=== PATIENT | male | born 1955 | race Caucasian/White ===

== ENCOUNTER → 2019-04-15 14:39 | Outpatient (CLI) | payer BC, SELFPAY ==
--- NOTE | ~2019-04-15 | US_ITS ---
EXAMINATION: US abdomen complete EXAM DATE: 04/15/2019 15:09 INDICATION: Right upper quadrant pain. Epigastric pain. Mid back pain. TECHNIQUE: Multiple grayscale and Doppler images of the complete abdomen were obtained (by a technolo gist who performed the scan) and subsequently reviewed. There is no prior study for comparison. FINDINGS: The abdominal aorta is normal in caliber. Visualized portion IVC is patent. The pancreatic head a nd body are normal in appearance. The pancreatic tail is not visualized. The liver has normal echogenicity and contour. There are no focal liver lesions identified. There is no evidence of intrahepatic biliary duct dilation. Portal venous flow was seen in the hepatopedal , normal direction and has normal Doppler waveform. Common bile duct measures 4 mm, which is normal. The gallbladder wall is normal in thickness, with ex pected amount of distention. No sonographic evidence of pericholecystic fluid. There is no cholelit hiases. Technologist performing exam reports patient did not demonstrate sonographic Miller's sign. Please note that this sign is less reliable in patients who have received pain medication. Right kidney: There is normal contour and echogenicity. It measures 11.7 x 6.2 x 7.1 centimeters. There are no focal renal lesions identified. There is no hydronephrosis. Left kidney: There is normal contour and echogenicity. It measures 11.6 x 6.4 x 6.2 centimeters. T here are no focal renal lesions identified. There is no hydronephrosis. The spleen measures 9.7 centimeters and is morphologically normal. IMPRESSION: 1. Unremarkable complete abdominal ultrasound exam. Reviewed, dictated and finalized at location A. NE WELDER
== END ==
PROVIDERS: Visit Provider Family Medicine
DX: R10.11 Right upper quadrant pain (principal)
CPT/HCPCS: 76700

== ENCOUNTER 2019-04-23 08:07 | Outpatient (CLI) | payer BC, SELFPAY ==
--- NOTE | ~2019-04-23 | NM_ITS ---
EXAMINATION: NM hepatobiliary w pharm DATE: 04/23/2019 13:27 INDICATION: Right upper quadrant abdominal pain. COMPARISON: Ultrasound 04/15/2019 TECHNIQUE: 4.7 mCi Tc-99m mebrofenin (Choletec) was administered intravenously. Scintigraphic images of the abdomen were obtained for one hour. Then, 2.1 mcg sincalide (Kinevac) IV was administered, an d imaging was continued for 30 minutes. FINDINGS: There is normal clearance of radiotracer from the blood pool. There is homogeneous tracer u ptake by the liver. Activity progresses to the bowel and gallbladder. Gallbladder ejection fraction (GBEF) was 11%. Note that most patients with gallbladder dysfunction have GBEF < 35%, which overlaps with the broad normal range of 10-90%. IMPRESSION: 1. Gallbladder ejection fraction in the lower range of normal. Note that this value overlaps with th e range of values that may be seen with gallbladder dysfunction and/or chronic cholecystitis if there is appropriate clinical correlation. Reviewed, dictated and finalized at location A. DEALER IMPRESSION: 1. Gallbladder ejection fraction in the lower range of normal. Note that this value overlaps with the range of values that may be seen with gallbladder dysfu nction and/or chronic cholecystitis if there is appropriate clinical correlatio wilmer
== END 2019-04-23 08:08 | disposition home or self-care (01) ==
PROVIDERS: PCP Family Medicine; Visit Provider Family Medicine
DX: R10.11 Right upper quadrant pain (principal)
CPT/HCPCS: 78227; A9537; J2805

== ENCOUNTER 2019-05-14 09:33 | Outpatient (CLI) | payer BC, SELFPAY ==
--- NOTE | 2019-05-14 09:35 | ECG_ITS ---
Measurements Intervals [place] Rate: 60 P: 40 DC: 185 QRS: -6 QRSD: 99 T: 21 QT: 408 QTc: 408 Interpretive Statements SINUS RHYTHM WITH SINUS ARRHYTHMIA INCOMPLETE RIGHT BUNDLE BRANCH BLOCK BASELINE ARTIFACT- I, II, III, AVR, AVL, AVF BORDERLINE ECG Electronically Signed On 05-14-2019 10:17:37 CDT by Krystian Gilbert D.O.
[2019-05-14 10:15] LABS: Alanine Aminotransferase 13 U/L (4-50); Albumin Level 4.3 g/dL (3.5-5.1); Alkaline Phosphatase 43 U/L (38-126); Amylase 49 U/L (30-110); Aspartate Amino Transferase 24 U/L (17-59); Bilirubin,Total 0.3 mg/dL (0.2-1.3); Lipase 61 U/L (23-300)
== END 2019-05-14 09:34 | disposition home or self-care (01) ==
PROVIDERS: PCP Family Medicine; Visit Provider Surgery
DX: K82.8 Other specified diseases of gallbladder (principal); I10 Essential (primary) hypertension; I45.10 Unspecified right bundle-branch block
CPT/HCPCS: 36415; 80076; 82150; 83690; 86850; 86900; 86901; 93005

== ENCOUNTER 2019-07-13 00:08 | Outpatient (CLI) | payer BC, SELFPAY ==
[2019-07-13 18:40] LABS: SARS-CoV-2 RNA PCR Negative
== END 2019-07-13 00:09 | disposition home or self-care (01) ==
LOC: ANHCOVIDDT 00:08
PROVIDERS: PCP Family Medicine; Visit Provider Surgery
DX: Z01.812 Encounter for preprocedural laboratory examination (principal); Z20.828 Contact with and (suspected) exposure to other viral communicable diseases
CPT/HCPCS: 87635; C9803; U0003

== ENCOUNTER 2019-07-16 01:20 | Day surgery (SDC) | payer BC, SELFPAY ==
[2019-05-07 10:45] VITALS: BMI 31.1
[2019-07-12 09:05] VITALS: BMI 31.1
[2019-07-16 10:30] VITALS: BP 122/71; PULSE 64; RESP 17; TEMP 36.5; O2SAT 99
--- NOTE | 2019-07-16 10:49 | P.PNAN_ITS ---
Anes - Initial Pre Proc Eval Procedure: Operation Date: 07/16/19 12:00 Proposed Procedures p Laparoscopic Cholecystectomy, Possible Open - Sebas Arboleda DO Date/Time: 07/16/19 10:49 Surgeon: Sebas Arboleda DO Pre Op Diagnosis: Biliary Dyskinesia Patient Data Age: 63 Gender: M Height: 6 ft Weight: 104.33 kg Allergies Allergy/AdvReac Type Severity Reaction Status Date / Time cephalexin Allergy Unknown Rash Verified 07/12/19 09:19 house dust Allergy Unknown CONGESTION/ Verified 07/12/19 09:19 COUGH pollen extracts Allergy Unknown CONGESTION/ Verified 07/12/19 09:19 COUGH Home Medications Medication Instructions Recorded Confirmed Type Vitamin C 1 tablet PO DAILY 05/07/19 07/12/19 History Vitamin D3 1 tablet PO DAILY 05/07/19 07/12/19 History cinnamon bark [Cinnamon] 500 mg PO BIDWM 05/07/19 07/12/19 History milk thistle 1 tablet PO BIDWM 05/07/19 07/12/19 History multivitamin 1 tablet PO DAILY 05/07/19 07/12/19 History omega 3-wii-tuu-fish oil [Fish Oil] 1 cap PO BID 05/07/19 07/12/19 History vitamin B complex 1 tablet PO DAILY 05/07/19 07/12/19 History losartan 25 mg tablet 25 mg PO DAILY #90 tablet 06/07/19 07/12/19 Rx Patient hx anesthesia problems: none Family hx anesthesia problems: none PMFSH Past Medical History Medical History Essential (primary) hypertension Type 2 diabetes mellitus without complications Surgical History Surgical History History of right knee surgery 1985 & 1995 Family History Family History Mother Hypertension Family history of diabetes mellitus in first degree relative Family history of coronary artery disease Diabetes mellitus Father Family history of lung cancer COPD (chronic obstructive pulmonary disease) Lung cancer Other Carcinoma of colon Social History Social History Smoking status: Never smoker Alcohol intake: current Anes - Eval Final PreProcedure Day of Procedure 07/16/19 10:49 Patient weight: obese Heart: regular rate and rhythm Lungs: clear to auscultation Airway: Mallampati scale class II Neurological: alert and oriented Last oral intake: >/= 8 hours Emergent: no Anesthetic plan: proceed Anesthesia type and monitoring: general ETT and standard monitoring Informed Consent: The patient's anesthetic plan and its attendant risks and maritza efits were discussed with the patient/family/POA. Questions were solicited and answers provided to the satisfaction of the patient/family/POA.
[2019-07-16 10:51] LABS: Glucose Point of Care 135 (65-105)
--- NOTE | 2019-07-16 10:55 | PM.IMHP ---
H&P: HPI History of Present Illness Chief complaint: Biliary Dyskinesia Narrative: Noel Wan is a 63 year old male who presents with hx of intermittent upper abdominal pain. Workup showed poor gallbladder function. He now presents for elective lap pérez. Review of Systems Review of Systems: All systems reviewed & are unremarkable except as noted in HPI and below PMFSH Past Medical History Medical History Essential (primary) hypertension Type 2 diabetes mellitus without complications Surgical History Surgical History History of right knee surgery 1985 & 1995 Family History Family History Mother Hypertension Family history of diabetes mellitus in first degree relative Family history of coronary artery disease Diabetes mellitus Father Family history of lung cancer COPD (chronic obstructive pulmonary disease) Lung cancer Other Carcinoma of colon Social History Social History Smoking status: Never smoker Alcohol intake: current Meds Home Medications and Allergies Home Medications Medication Instructions Recorded Confirmed Type Vitamin C 1 tablet PO DAILY 05/07/19 07/12/19 History Vitamin D3 1 tablet PO DAILY 05/07/19 07/12/19 History cinnamon bark [Cinnamon] 500 mg PO BIDWM 05/07/19 07/12/19 History milk thistle 1 tablet PO BIDWM 05/07/19 07/12/19 History multivitamin 1 tablet PO DAILY 05/07/19 07/12/19 History omega 6-ygh-phc-fish oil [Fish Oil] 1 cap PO BID 05/07/19 07/12/19 History vitamin B complex 1 tablet PO DAILY 05/07/19 07/12/19 History losartan 25 mg tablet 25 mg PO DAILY #90 tablet 06/07/19 07/12/19 Rx Allergies Allergy/AdvReac Type Severity Reaction Status Date / Time cephalexin Allergy Unknown Rash Verified 07/12/19 09:19 house dust Allergy Unknown CONGESTION/ Verified 07/12/19 09:19 COUGH pollen extracts Allergy Unknown CONGESTION/ Verified 07/12/19 09:19 COUGH Exam GI: Inspection: normal to inspection GI Palp: No abdominal tenderness Percussion: Yes normal to percussion Auscultation: normal bowel sounds Assessment and Plan Assessment and plan (1) Biliary dyskinesia: Code(s): K82.8 - Other specified diseases of gallbladder Status: Acute Assessment and Plan: I have recommended laparscopic cholecystectomy, possible open. I have discussed the procedure, risks, benefits, and alternatives with the patient. All questions answered. No changes since last seen in office. (2) History of DVT (deep vein thrombosis): Code(s): Z86.718 - Personal history of other venous thrombosis and embolism Status: Acute
[2019-07-16] MEDS: LACTATED RINGERS 1,000 ML 30 ML IV CONT (11:15)
[2019-07-16] MEDS: HEPARIN SODIUM 5,000 UNITS/ML VIAL 5000 UNITS SUB-Q (11:15)
[2019-07-16] MEDS: CLINDAMYCIN 900 MG/NS 50 ML 900 MG/50 ML PIGGYBACK 50 MG IVPB (11:32)
[2019-07-16] MEDS: IBUPROFEN IV 800 MG/200 ML 800 MG/200 ML BAG 400 MG IVPB (11:52)
[2019-07-16] MEDS: BUPIVACAINE/EPINEPHRINE 0.5% 30 ML VIAL INFILTRATE (12:06)
--- NOTE | 2019-07-16 12:23 | PM.PROC ---
Procedure Note - Detailed Date of procedure: 07/16/19 Pre-op diagnosis: Biliary Dyskinesia Post-op diagnosis: same Procedure performed: Laparoscopic Cholecystectomy Description of procedure: Procedure as well as risks, benefits, and alternatives were discussed with patient. Written consent was obtained and placed in chart prior to procedure. The patient was brought back to surgical suite. Patient was placed in supine position on operating table. Time-out was done to confirm patient and procedure. Patient was then intubated by the anesthesia department. Abdomen was prepped and draped in sterile fashion using chlorhexidine prep. 0.5% bupivacaine with epinephrine was infiltrated at each site of incision. A 5 millimeter incision was made near the umbilicus, and a 5 millimeter Optiview trocar was advanced through the abdominal layers under direct visualization. Once inside the abdominal cavity, carbon dioxide was insufflated to create a pneumoperitoneum. The camera was inserted and the abdomen was inspected. No immediate abnormalities were identified. The patient was placed in reverse Trendelenburg position and rotated slightly to the left. An 11 millimeter incision was made in the subxiphoid region, and an 11 millimeter trocar was inserted under direct visualization. Two 5 millimeter incisions were made in the right upper quadrant, and two 5 millimeter trocars were inserted under direct visualization. The gallbladder was identified and grasped at the fundus and retracted superiorly. It was then grasped at the infundibulum retracted laterally. Careful dissection around the neck of the gallbladder was performed using blunt dissection with a [place] grasper and hook electrocautery. The cystic duct was identified, and a window was created behind it. The cystic artery was also identified and a window was created behind it. The critical view of safety was identified, visualizing the cystic duct running directly into the neck of the gallbladder, and the cystic artery running directly into the wall of the gallbladder. A 5 millimeter clip tube sizer operator was then used to place 2 clips proximally and 1 clip distally on both the cystic duct and cystic artery. They were then both transected using endoscopic scissors. Once safely away from the orestes hepatitis, the gallbladder was dissected free from the liver bed using hook electrocautery. Hemostasis was achieved along the way. The gallbladder was removed completely and then removed through the subxiphoid port. The liver bed was then inspected. Hemostasis appeared adequate, and our clips appeared secure. The area was gently irrigated with sterile saline. No other abnormalities were seen. The patient was flattened out in bed, and 1 final inspection was made around the abdominal cavity. The subxiphoid port was removed, and a Sarthak Rancho cone was used to approximate the fascia with an 0-Vicryl simple interrupted suture. The remaining ports were then removed under direct visualization, the camera was removed, and the pneumoperitoneum was released. The skin of the incisions was approximated using 4-0 Monocryl subcuticular sutures. Exofin glue was applied on top. The patient was then awakened from anesthesia, extubated, and transferred to recovery. Anesthesia: GETA and local (0.5% bupivicaine with epi) Surgeon: Sebas Arboleda DO Estimated blood loss (mL): 10 Drains: No Packing: No Pathology: yes Complications: No immediate complications Condition: stable (Patient tolerated procedure well, and is currently resting comfortably in recovery.) Disposition: same day Findings: Noel is a 63 y/o male who presents with RUQ abdominal pain that radiates to his right back and shoulder blade. He states greasy/fatty foods make his symptoms worse. He occasionally experiences chest tightness as well. An U/S was done at [facility] on 04/15/19 which showed unremarkable complete abdominal ultrasound. He also had a HIDA scan a
[2019-07-16 12:28] VITALS: BP 129/78; PULSE 64; RESP 13; TEMP 36.3; O2SAT 100
[2019-07-16 12:40] VITALS: BP 121/66; PULSE 54; RESP 17; O2SAT 94
[2019-07-16 13:00] VITALS: BP 117/86; PULSE 48
[2019-07-16 13:30] VITALS: BP 117/66; PULSE 46
[2019-07-16 14:00] VITALS: BP 127/67; PULSE 49
== END 2019-07-16 14:15 | disposition home or self-care (01) ==
PROVIDERS: PCP Family Medicine; Visit Provider Surgery
PROC: 0FT44ZZ Resection of Gallbladder, Percutaneous Endoscopic Approach (ICD-10-PCS; CPT 47562; principal; 2019-07-16 12:00)
DX: K81.1 Chronic cholecystitis (principal); I10 Essential (primary) hypertension; E11.9 Type 2 diabetes mellitus without complications; E66.9 Obesity, unspecified; Z68.31 Body mass index [BMI] 31.0-31.9, adult
CPT/HCPCS: 47562; 36415; 86850; 86900; 86901; 88304; J0131; J0330; J1644; J1741; J2250; J2405; J2704; J2710; J3010; J7030; J7120

== ENCOUNTER 2019-12-30 06:51 | Outpatient (NON) | payer BC, SELFPAY ==
[2019-12-30 17:23] LABS: SARS-CoV-2 RNA PCR Negative
== END 2019-12-30 06:52 ==
LOC: ANHCOVIDDT 06:52
PROVIDERS: PCP Family Medicine; Visit Provider Nurse Practitioner Family
DX: R19.7 Diarrhea, unspecified (principal); Z20.828 Contact with and (suspected) exposure to other viral communicable diseases
CPT/HCPCS: 87635; C9803; U0003

== ENCOUNTER → 2020-05-15 13:27 | Outpatient (CLI) | payer BC, SELFPAY ==
--- NOTE | ~2020-05-15 | US_ITS ---
EXAMINATION: US venous doppler [facility] DATE: 05/15/2020 14:00 INDICATION: Left lower limb pain TECHNIQUE: Grayscale ultrasound images without and with compression and Doppler ultrasound images of the bilateral lower extremity veins were obtained. COMPARISON: None. FINDINGS: The visualized portions of right common femoral vein, profunda (deep) femoral vein, femoral vein, pop liteal vein, posterior tibial veins, peroneal veins, gastrocnemius vein and greater saphenous vein ou tflow are patent. The visualized portions of left common femoral vein, profunda femoral vein, femoral vein, popliteal v ein, posterior tibial veins, peroneal veins, gastrocnemius vein and greater saphenous vein outflow ar e patent. IMPRESSION: 1. No deep venous thrombosis in either lower limb. Reviewed, dictated and finalized at location A.
== END ==
PROVIDERS: PCP Family Medicine; Visit Provider Nurse Practitioner Family
DX: M79.605 Pain in left leg (principal)
CPT/HCPCS: 93970

== ENCOUNTER → 2021-02-28 09:46 | Outpatient (CLI) | payer BC, SELFPAY ==
[2021-03-01 14:36] LABS: SARS-CoV-2 RNA PCR Negative
== END ==
PROVIDERS: PCP Family Medicine; Visit Provider Nurse Practitioner Family
DX: R68.89 Other general symptoms and signs (principal); Z20.822 Contact with and (suspected) exposure to COVID-19
CPT/HCPCS: C9803; U0003; U0005

== ENCOUNTER 2021-05-17 09:02 | Outpatient (CLI) | payer BC, SELFPAY ==
--- NOTE | ~2021-05-17 | XR_ITS ---
EXAMINATION: XR chest 2V 05/17/2021 10:30 INDICATION: Chest pain PROCEDURE: 2 view chest COMPARISON: 06/14/2008 FINDINGS: The lungs are clear. The cardiomediastinal silhouette is within normal limits. There are no pleural effusions. There is no pneumothorax suspected. There is a calcified granuloma in the rig ht lung base. IMPRESSION: 1: NO ACUTE CARDIOPULMONARY DISEASE. Reviewed, dictated and finalized at location A.
--- NOTE | 2021-05-17 09:12 | EST_ITS ---
Patient Info Name: Dwayne Wan Age: 65 years : 1955 Gender: Male Ht: 72 in Wt: 225 lbs BSA: 2.30 m2 Exam Date: 05/17/2021 9:32 AM Exam Location: [facility] Stress Patient Status: Outpatient Admit Date: 05/17/2021 Staff Ordering Physician: Laura Reich PAC Attending Provider: Laura Reich PAC Exercise Technologist: Elieser Miller RDCS, RT Exercise Physician: Krystian Gilbert DO Exam Type: CA stress test treadmill Study Info An exercise stress test was performed. Summary 1. 1. Negative Catracho exercise stress test for ischemic ST changes by ECG criteria. 2. 2. Good functional capacity, achieving 10 METs of workload. 3. 3. Appropriate HR response to exercise. 4. 4. Appropriate HR recovery at 1 minute post exercise. 5. 5. No imaging with stress testing. 6. 6. Patient informed of the above results. Protocol: [place] Stress ECG Details Stage: REST Duration (min): 0 min : 11 sec Speed (mph): 0.0 Grade (%): 0 HR (bpm): 74 SBP (mmHg): --- DBP (mmHg): --- METS: --- Stage: REST Duration (min): 17 min : 45 sec Speed (mph): 0.0 Grade (%): 0 HR (bpm): 72 SBP (mmHg): 116 DBP (mmHg): 75 METS: --- Stage: STAGE 1 Duration (min): 1 min : 0 sec Speed (mph): 1.7 Grade (%): 10 HR (bpm): 90 SBP (mmHg): 116 DBP (mmHg): 75 METS: --- Stage: STAGE 1 Duration (min): 2 min : 0 sec Speed (mph): 1.7 Grade (%): 10 HR (bpm): 93 SBP (mmHg): 116 DBP (mmHg): 75 METS: --- Stage: STAGE 1 Duration (min): 3 min : 0 sec Speed (mph): 1.7 Grade (%): 10 HR (bpm): 97 SBP (mmHg): 138 DBP (mmHg): 64 METS: --- Stage: STAGE 2 Duration (min): 1 min : 0 sec Speed (mph): 2.5 Grade (%): 12 HR (bpm): 106 SBP (mmHg): 138 DBP (mmHg): 64 METS: --- Stage: STAGE 2 Duration (min): 2 min : 0 sec Speed (mph): 2.5 Grade (%): 12 HR (bpm): 111 SBP (mmHg): 159 DBP (mmHg): 65 METS: --- Stage: STAGE 2 Duration (min): 3 min : 0 sec Speed (mph): 2.5 Grade (%): 12 HR (bpm): 118 SBP (mmHg): 159 DBP (mmHg): 65 METS: --- Stage: STAGE 3 Duration (min): 1 min : 0 sec Speed (mph): 3.4 Grade (%): 14 HR (bpm): 142 SBP (mmHg): 191 DBP (mmHg): 99 METS: --- Stage: STAGE 3 Duration (min): 1 min : 43 sec Speed (mph): 3.4 Grade (%): 14 HR (bpm): 141 SBP (mmHg): 191 DBP (mmHg): 99 METS: --- Stage: RECOVERY Duration (min): 0 min : 16 sec Speed (mph): 1.5 Grade (%): 0 HR (bpm): 146 SBP (mmHg): 191 DBP (mmHg): 99 METS: --- Stage: RECOVERY Duration (min): 1 min : 16 sec Speed (mph): 0.0 Grade (%): 0 HR (bpm): 112 SBP (mmHg): 191 DBP (mmHg): 99 METS: --- Stage: RECOVERY Duration (min): 2 min : 4 sec Speed (mph): 0.0 Grade (%): 0 HR (bpm): 89 SBP (mmHg): 200 DBP (mmHg): 80 M
--- NOTE | 2021-05-17 10:08 | ECG_ITS ---
Measurements Intervals [place] Rate: 80 P: 30 ME: 177 QRS: 15 QRSD: 100 T: 46 QT: 384 QTc: 445 Interpretive Statements SINUS RHYTHM POSSIBLE RIGHT VENTRICULAR CONDUCTION DELAY [RSR (QR) IN V1/V2] BORDERLINE ECG COMPARED TO ECG 05/14/2019 10:13:24 NO SIGNIFICANT CHANGES Electronically Signed On 05-17-2021 15:59:14 CDT by Aroldo Wilcox M.D.
== END 2021-05-17 09:03 | disposition home or self-care (01) ==
PROVIDERS: PCP Family Medicine; Visit Provider Physician Assistant Medical
DX: R07.89 Other chest pain (principal); R06.02 Shortness of breath; R94.31 Abnormal electrocardiogram [ECG] [EKG]
CPT/HCPCS: 71046; 93005; 93017

== ENCOUNTER → 2021-06-12 13:13 | Outpatient (CLI) | payer BC, SELFPAY ==
--- NOTE | ~2021-06-12 | CT_ITS ---
EXAMINATION:CT diagnostic chest w con DATE: 06/12/2021 13:59 INDICATION: Shortness of breath. Upper chest pain. TECHNIQUE: Computed tomography (CT) of the chest was performed with 75 mL Omnipaque 350 intravenous c ontrast. Automated exposure control and iterative reconstruction technique were employed. The dose-le ngth product (DLP) was 562.24 mGy-cm. COMPARISON: Chest 2 views 05/17/2021 FINDINGS: There is mild atelectasis bilaterally. Calcified right lung nodules and calcified right hil ar lymph nodes are consistent with old granulomas disc disease. There are a few scattered nodules in the lungs measuring up to 4 mm, likely benign. No pleural effusion. The heart size is normal. No flaquita cardial effusion. There is a small sliding hiatal hernia. There is mild thoracic spondylosis. IMPRESSION: 1. Small sliding hiatal hernia. Reviewed, dictated and finalized at location B.
[2021-06-12 13:35] LABS: Estimated Glomerular Filt Rate > 60
== END ==
PROVIDERS: PCP Family Medicine; Visit Provider Physician Assistant Medical
DX: R06.02 Shortness of breath (principal); R07.89 Other chest pain; Z87.891 Personal history of nicotine dependence; K44.9 Diaphragmatic hernia without obstruction or gangrene
CPT/HCPCS: 71260; Q9967

== ENCOUNTER 2022-11-18 14:16 | Outpatient (CLI) | payer MEDICARE, OTHER, SELFPAY ==
[2022-11-18 14:34] LABS: Basophils Percent Auto 0.5 % (0.2-1.2); Eosinophils Absolute Auto 0.2 K/mm3 (0-0.3); Eosinophils Percent Auto 3.3 % (0-4.4); Hematocrit 42.3 % (42.0-52.0); Hemoglobin 14.4 g/dL (14.0-18.0); Immature Granulocyte Absolute 0.02 K/mm3 (0.00-0.031); Immature Granulocyte Percent A 0.3 % (0-0.5); Lymphocytes Absolute Auto 1.59 K/mm3 (0.9-3.2); Lymphocytes Percent Auto 24.7 % (18.3-44.2); Mean Corpuscular Hemoglobin 31.6 pg (26-34); Mean Platelet Volume 10.4 fl (7.4-10.4); Monocytes Absolute Auto 0.7 K/mm3 (0.1-0.6); Monocytes Percent Auto 10.9 % (2.6-8.5); Neutrophils Absolute Auto 3.9 K/mm3 (1.3-6.7); Neutrophils Percent Auto 60.3 % (45.5-73.1); Platelet Count Result 149 k/mm3 (150-375); Red Blood Count 4.55 M/mm3 (4.6-6.20); Red Cell Distribution Width 12.2 % (11.5-14.5); White Blood Count 6.4 K/mm3 (4.5-10.0)
[2022-11-18 16:30] LABS: Iron 79 ug/dL (49-181)
[2022-11-18 16:34] LABS: Alanine Aminotransferase 20 U/L (6-50); Albumin Level 4.6 g/dL (3.5-5.1); Alkaline Phosphatase 44 U/L (38-126); Anion Gap 4 mmol/L (8-16); Aspartate Amino Transferase 32 U/L (17-59); Bilirubin,Total 0.6 mg/dL (0.2-1.3); Blood Urea Nitrogen 25 mg/dL (9-20); Calcium 9.2 mg/dL (8.4-10.2); Carbon Dioxide 31 mmol/L (22-30); Chloride 102 mmol/L (98-107); Estimated Glomerular Filt Rate > 60; Glucose 122 mg/dL (65-110); Potassium 4.4 mmol/L (3.4-5.0); Sodium 137 mmol/L (137-145)
[2022-11-18 16:41] LABS: Percent Iron Saturation 27 % (20-50)
[2022-11-18 17:52] LABS: Folic Acid > 20.0 ng/mL (2.76->20)
[2022-11-22 00:16] LABS: Platelet Antibody, Direct NEGATIVE (NEGATIVE)
== END 2022-11-18 14:17 | disposition home or self-care (01) ==
LOC: ANHLAB 14:19
PROVIDERS: PCP Family Medicine; Visit Provider Internal Medicine Hematology & Oncology
DX: D64.9 Anemia, unspecified (principal); D69.59 Other secondary thrombocytopenia
CPT/HCPCS: 36415; 80053; 82607; 82728; 82746; 83540; 83550; 85025; 86023

== ENCOUNTER 2022-12-06 09:58 | Outpatient (CLI) | payer MEDICARE, OTHER, SELFPAY ==
--- NOTE | ~2022-12-06 | US_ITS ---
EXAMINATION: US abdomen complete DATE: 12/06/2022 10:57 INDICATION: Other secondary thrombocytopenia TECHNIQUE: Multiple grayscale and Doppler ultrasound images of the abdomen were obtained. COMPARISON: 11/14/2019 FINDINGS: The head and body of the pancreas are normal. The pancreatic tail is obscured by bowel gas. The liver demonstrates increased echogenicity, heterogenous echotexture, and decreased through trans mission. No surface nodularity. Normal hepatopetal flow in the main portal vein. The gallbladder is s urgically absent The normal common bile duct measures 3 mm. The visualized portions of the aorta and inferior vena cava are normal. The spleen is normal in appearance and measures 9.3 cm. The right kidney measures 11.5 x 4.8 x 3.7 cm . The left kidney measures 12.6 x 5.4 x 5.4 cm. The kidneys demonstrate normal parenchymal echogenici ty. There is no hydronephrosis. IMPRESSION: 1. Diffuse hepatic steatosis. Reviewed, dictated and finalized at location B.
== END 2022-12-06 09:59 | disposition home or self-care (01) ==
PROVIDERS: PCP Family Medicine; Visit Provider Internal Medicine Hematology & Oncology
DX: D69.59 Other secondary thrombocytopenia (principal); K76.0 Fatty (change of) liver, not elsewhere classified
CPT/HCPCS: 76700

== ENCOUNTER 2023-06-26 13:00 | Outpatient (CLI) | payer MEDICARE, OTHER, SELFPAY ==
[2023-06-26 13:20] LABS: Basophils Percent Auto 0.5 % (0.2-1.2); Eosinophils Absolute Auto 0.2 K/mm3 (0-0.3); Eosinophils Percent Auto 3.4 % (0-4.4); Hematocrit 40.5 % (42.0-52.0); Hemoglobin 13.8 g/dL (14.0-18.0); Immature Granulocyte Absolute 0.01 K/mm3 (0.00-0.031); Immature Granulocyte Percent A 0.2 % (0-0.5); Lymphocytes Absolute Auto 2.04 K/mm3 (0.9-3.2); Mean Corpuscular HGB Conc 34.1 g/dl (32-36); Mean Corpuscular Hemoglobin 31.9 pg (26-34); Mean Corpuscular Volume 93.8 fl (80-100); Mean Platelet Volume 10.1 fl (7.4-10.4); Monocytes Absolute Auto 0.6 K/mm3 (0.1-0.6); Monocytes Percent Auto 10.9 % (2.6-8.5); Neutrophils Absolute Auto 2.6 K/mm3 (1.3-6.7); Platelet Count Result 145 k/mm3 (150-375); Red Blood Count 4.32 M/mm3 (4.6-6.20); Red Cell Distribution Width 12.5 % (11.5-14.5); White Blood Count 5.5 K/mm3 (4.5-10.0)
[2023-06-26 17:24] LABS: Alanine Aminotransferase 14 U/L (6-50); Albumin Level 4.4 g/dL (3.5-5.1); Alkaline Phosphatase 45 U/L (38-126); Anion Gap 7 mmol/L (4-12); Aspartate Amino Transferase 25 U/L (17-59); Bilirubin,Total 0.8 mg/dL (0.2-1.3); Blood Urea Nitrogen 20 mg/dL (9-20); Calcium 9.9 mg/dL (8.4-10.2); Carbon Dioxide 25 mmol/L (22-30); Chloride 106 mmol/L (98-107); Estimated Glomerular Filt Rate > 60; Glucose 111 mg/dL (65-110); Potassium 4.4 mmol/L (3.4-5.0); Sodium 138 mmol/L (137-145)
[2023-06-26 18:30] LABS: Folic Acid > 20.0 ng/mL (2.76->20)
== END 2023-06-26 13:01 | disposition home or self-care (01) ==
LOC: ANHLAB 13:03
PROVIDERS: PCP Family Medicine; Visit Provider Internal Medicine Hematology & Oncology
DX: D64.9 Anemia, unspecified (principal)
CPT/HCPCS: 36415; 80053; 82607; 82728; 82746; 85025

== ENCOUNTER 2023-10-09 08:57 | Outpatient (CLI) | payer MEDICARE, OTHER, SELFPAY | END 2023-10-09 08:58 | disposition home or self-care (01) | LOC: ANHAUDIO 08:58 | PROVIDERS: PCP Family Medicine; Visit Provider Nurse Practitioner Family | DX: H90.3 Sensorineural hearing loss, bilateral (principal) | CPT/HCPCS: 92557; 92567 ==

== ENCOUNTER 2023-11-13 07:44 | Outpatient (NON) | payer MEDICARE, OTHER, SELFPAY | END 2023-11-13 07:45 | disposition home or self-care (01) | LOC: ANHLAB 11-14 07:47 | PROVIDERS: PCP Family Medicine; Visit Provider Internal Medicine Gastroenterology | DX: Z12.11 Encounter for screening for malignant neoplasm of colon (principal) | CPT/HCPCS: 88305 ==

== ENCOUNTER 2023-11-13 09:27 | Day surgery (SDC) | payer MEDICARE, OTHER, SELFPAY ==
[2023-10-13 13:32] VITALS: BMI 32.4
[2023-10-16 08:49] VITALS: BMI 30.6
--- NOTE | 2023-11-12 13:16 | WPDANESEPPF ---
Anes - Initial Pre Proc Eval Procedure: Operation Date: 11/13/23 11:00 Proposed Procedures p Diagnostic Colonoscopy - Peter Tidwell MD Date/Time: 11/12/23 13:16 Surgeon: Peter Tidwell MD Pre Op Diagnosis: Personal HX of Colonic Polyps Patient Data Age: 68 Gender: M Height: 1.83 m Weight: 102.3 kg Allergies Allergy/AdvReac Type Severity Reaction Status Date / Time cephalexin Allergy Unknown Rash Verified 10/31/23 10:12 Home Medications Medication Instructions Recorded Confirmed Type Vitamin D3 1 tablet PO DAILY 05/07/19 10/31/23 History cinnamon bark 500 mg capsule 500 mg PO BIDWM 05/07/19 10/31/23 History (Cinnamon) milk thistle 1 tablet PO BIDWM 05/07/19 10/31/23 History multivitamin 1 tablet PO DAILY 05/07/19 10/31/23 History omega 2-yum-ott-fish oil 1,000 mg 1 cap PO BID 05/07/19 10/31/23 History (120 mg-180 mg) capsule (Fish Oil) vitamin B complex 1 tablet PO DAILY 05/07/19 10/31/23 History zinc gluconate 30 mg tablet 30 mg PO DAILY 05/31/21 10/31/23 History metformin 500 mg tablet 500 mg PO BID diabetes #180 tabs 09/03/23 10/31/23 Rx rosuvastatin 40 mg tablet (Crestor) 40 mg PO DAILY #90 tabs 09/03/23 10/31/23 Rx losartan 25 mg tablet 25 mg PO DAILY 10/16/23 10/31/23 History mecobalamin (vitamin B12) 1,000 1,000 mcg PO DAILY 10/16/23 10/31/23 History mcg chewable tablet vitamin K2 45 mcg capsule 45 mcg PO DAILY 10/16/23 10/31/23 History Patient hx anesthesia problems: none Family hx anesthesia problems: none Results Review: All pre-operative results and documents have been reviewed as part of the pre-operative evaluation. [facility] Past Medical History Medical History (Updated 11/13/23 @ 10:24 by Peter Tidwell MD) Abdominal discomfort Biliary dyskinesia BMI 30.0-30.9,adult Cholecystectomy planned Dysfunctional gallbladder Essential (primary) hypertension History of DVT (deep vein thrombosis) On statin therapy Rectus diastasis RUQ pain Type 2 diabetes mellitus without complications Surgical History Surgical History History of right knee surgery 1985 & 1995 Hx laparoscopic cholecystectomy Family History Family History Mother Hypertension Family history of diabetes mellitus in first degree relative Family history of coronary artery disease Diabetes mellitus Cancer of kidney Father Family history of lung cancer COPD (chronic obstructive pulmonary disease) Lung cancer Sibling No problems noted. Other Carcinoma of colon Social History Social History Smoking packs per day: 0.5 Smoking cigarettes per day: 10.0 Years smoked: 5 Smoking pack-years: 2.50 Smoking status: Former smoker Tobacco type: cigarettes Alcohol intake: current Drinks per week: 18 Substance use: former Substance use type: does not use Living arrangements: with family Occupation/Education: retired Additional occupation/education comments: Spinal Integration Spiritual care concerns: No Anes - Eval Final PreProcedure Day of Procedure 11/12/23 13:16 Patient weight: obese Heart: regular rate and rhythm Lungs: clear to auscultation Airway: Mallampati scale class II Neurological: alert and oriented Last oral intake: >/= 8 hours ASA classification: III Emergent: no Anesthetic plan: proceed Anesthesia type and monitoring: general GIVS and standard monitoring Results Review: All pre-operative results and documents have been reviewed as part of the pre-operative evaluation. Informed Consent: The patient's anesthetic plan and its attendant risks and benefits were discussed with the patient/family/POA. Questions were solicited and answers provided to the satisfaction of the patient/family/POA.
[2023-11-13 09:42] VITALS: BP 142/72; PULSE 64; RESP 18; TEMP 36.8; O2SAT 100
[2023-11-13] MEDS: LACTATED RINGERS 1,000 ML 150 ML IV CONT (10:14)
--- NOTE | 2023-11-13 10:22 | PM.HPGS ---
History of Present Illness History of Present Illness Consent: Risks, benefits, and alternatives have been discussed and questions answered. Patient agrees to proceed with procedure. Chief complaint: Personal HX of Colonic Polyps Narrative: Noel Wan is a 68 year old male presents for screening colonoscopy. Patient has a history of a benign tubular adenomatous colon polyp removed by Dr. Rinaldi at at time of colonoscopy in 2018. Patient reports that his current weight appetite and bowel movements are normal. Patient denies abdominal pain. He has had no bleeding. Family history is noncontributory. Review of Systems Review of Systems: All systems reviewed & are unremarkable except as noted in HPI and below PMFSH Past Medical History Medical History (Updated 11/13/23 @ 10:24 by Peter Tidwell MD) Abdominal discomfort Biliary dyskinesia BMI 30.0-30.9,adult Cholecystectomy planned Dysfunctional gallbladder Essential (primary) hypertension History of DVT (deep vein thrombosis) On statin therapy Rectus diastasis RUQ pain Type 2 diabetes mellitus without complications Surgical History Surgical History History of right knee surgery 1985 & 1995 Hx laparoscopic cholecystectomy Family History Family History Mother Hypertension Family history of diabetes mellitus in first degree relative Family history of coronary artery disease Diabetes mellitus Cancer of kidney Father Family history of lung cancer COPD (chronic obstructive pulmonary disease) Lung cancer Sibling No problems noted. Other Carcinoma of colon Social History Social History Smoking packs per day: 0.5 Smoking cigarettes per day: 10.0 Years smoked: 5 Smoking pack-years: 2.50 Smoking status: Former smoker Tobacco type: cigarettes Alcohol intake: current Drinks per week: 18 Substance use: former Substance use type: does not use Living arrangements: with family Occupation/Education: retired Additional occupation/education comments: [employer] Spiritual care concerns: No Meds Home Medications and Allergies Home Medications Medication Instructions Recorded Confirmed Type Vitamin D3 1 tablet PO DAILY 05/07/19 10/31/23 History cinnamon bark 500 mg capsule 500 mg PO BIDWM 05/07/19 10/31/23 History (Cinnamon) milk thistle 1 tablet PO BIDWM 05/07/19 10/31/23 History multivitamin 1 tablet PO DAILY 05/07/19 10/31/23 History omega 3-met-frd-fish oil 1,000 mg 1 cap PO BID 05/07/19 10/31/23 History (120 mg-180 mg) capsule (Fish Oil) vitamin B complex 1 tablet PO DAILY 05/07/19 10/31/23 History zinc gluconate 30 mg tablet 30 mg PO DAILY 05/31/21 10/31/23 History metformin 500 mg tablet 500 mg PO BID diabetes #180 tabs 09/03/23 10/31/23 Rx rosuvastatin 40 mg tablet (Crestor) 40 mg PO DAILY #90 tabs 09/03/23 10/31/23 Rx losartan 25 mg tablet 25 mg PO DAILY 10/16/23 10/31/23 History mecobalamin (vitamin B12) 1,000 1,000 mcg PO DAILY 10/16/23 10/31/23 History mcg chewable tablet vitamin K2 45 mcg capsule 45 mcg PO DAILY 10/16/23 10/31/23 History Allergies Allergy/AdvReac Type Severity Reaction Status Date / Time cephalexin Allergy Unknown Rash Verified 10/31/23 10:12 Vital Signs Vital Signs - 24 hr 11/13/23 09:42 Temperature 98.3 F Pulse Rate 64 Respiratory Rate 18 Blood Pressure 142/72 H Pulse Oximetry 100 Oxygen Delivery Room Air Exam Narrative: Physical exam reveals patient to be alert. Vital signs stable. HEENT exam is unremarkable. Patient is anicteric. Lungs are clear to auscultation and percussion. Is without murmur or extra sounds. Abdomen bowel sounds are present soft nontender with no organomegaly. Digital external rectal exam normal. Assessment and Plan Assessment and plan (1) Hi
[2023-11-13 10:28] LABS: Glucose Point of Care 140 mg/dl (65-105)
[2023-11-13 11:56] VITALS: BP 124/65; PULSE 64; RESP 18; O2SAT 100
[2023-11-13 12:06] VITALS: BP 116/73; PULSE 54; RESP 16; O2SAT 100
--- NOTE | 2023-11-13 12:15 | P.PNAN_ITS ---
Anes - Prog Note Post-Op Date/Time: 11/13/23 12:15 Cardiovascular status: other (A fib) Respiratory status: normal Airway patency: baseline Mental status: baseline Post-Op hydration status: normal Vital Signs: Last Vital Signs Temp 36.8 C 11/13/23 09:42 Pulse 64 11/13/23 09:42 Resp 18 11/13/23 09:42 BP 142/72 H 11/13/23 09:42 Pulse Ox 100 11/13/23 09:42 O2 Del Method Room Air 11/13/23 09:42 Pain Score (VAS): 0 I/O: Intake & Output 11/12/23 11/13/23 11/13/23 23:59 07:59 15:59 Intake Total 500 Balance 500 11/13/23 10:24 POC Capillary Glucose 140 H Post-procedural complaints: none Patient Feedback: Patient satisfied with anesthetic care. Other Findings: Patient found to be in A fib during colonoscopy. Patient asymptomatic and other vital signs stable. EKG performed and strip given to patient. Patient instruc rozina to call PCP after leaving surgery center to tell them about their new onset A fib. Patient also instructed that if chest pain occurs, shortness of breath, syncope or near syncope, light headedness or feelings of racing heart then to head to the ER.
[2023-11-13 12:16] VITALS: BP 146/59; PULSE 63; RESP 18; O2SAT 100
--- NOTE | 2023-11-13 12:42 | SUR.PHASEII ---
1156; PT ARRIVED INTO [facility] PER STRETCHER WITH DR CARRIZALES. STAT EKG ORDERED DUE TO NEW ONSET AFIB PER DR CARRIZALES. EKG SHOWS AFIB. 1200; PT AWAKE AND ALERT. DR CARRIZALES IN ROOM DISCUSSING AFIB WITH PT. PT GIVEN COPY OF EKG AND TOLD TO CALL PCP FOR NEW AFIB. DR CARRIZALES NOTIFIED PT TO REPORT TO LOCAL ER IF CP, SOB, DIZZINESS OCCURS. PT VERBALIZED UNDERSTANDING. 1210; DR DANIELLE IN ROOM DISCUSSING COLONOSCOPY AND REITERATED FOLLOWING UP WITH PCP REGARDING NEW AFIB.
== END 2023-11-13 12:40 | disposition home or self-care (01) ==
PROVIDERS: PCP Family Medicine; Visit Provider Internal Medicine Gastroenterology
PROC: 0DJD8ZZ Inspection of Lower Intestinal Tract, Via Natural or Artificial Opening Endoscopic (ICD-10-PCS; CPT 45378; principal; 2023-11-13 11:00)
DX: Z86.010 Personal history of colon polyps (principal); D12.2 Benign neoplasm of ascending colon; K57.30 Diverticulosis of large intestine without perforation or abscess without bleeding
CPT/HCPCS: 45385

== ENCOUNTER 2023-12-17 12:36 | Outpatient (CLI) | payer MEDICARE, OTHER, SELFPAY ==
--- NOTE | 2023-12-17 12:47 | ECHO_ITS ---
Patient Info Name: Noel Wan Age: 68 years : 1955 Gender: Male Ht: 72 in Wt: 227 lbs BSA: 2.31 m2 HR: 65 bpm BP: 135 / 78 mmHg Heart Rhythm: Sinus Rhythm Technical Quality: Good Exam Date: 12/17/2023 1:08 PM Exam Location: Echo Lab Patient Status: Outpatient Admit Date: 12/17/2023 Staff Ordering Physician: Margi Jules APRN Line Staker: Jr Knapp RDCS Attending Provider: Margi Jules APRN Referring Physician: Jorge A DUARTE; Exam Type: CA echo doppler color flow Study Info Indications - unspecified a fib Complete two-dimensional, color flow and Doppler transthoracic echocardiogram is performed. Summary 1. Complete two-dimensional, color flow and Doppler transthoracic echocardiogram is performed. 2. Left ventricular chamber dimension is normal. 3. Left ventricular systolic function is normal, estimated at 60-65%. 4. The left ventricular diastolic function is grade I diastolic dysfunction. 5. E/e' 7 is not elevated. 6. Left atrial chamber dimension is mildly enlarged. 7. There is trace aortic valve regurgitation. 8. There is trace mitral valve regurgitation. 9. There is trace tricuspid valve regurgitation. 10. No pulmonary hypertension, estimated pulmonary arterial systolic pressure is 26 mmHg. Left Ventricle E/e' 7 is not elevated. Left ventricular chamber dimension is normal. Left ventricular systolic function is normal, estimated at 60-65%. The left ventricular diastolic function is grade I diastolic dysfunction. Right Ventricle Right ventricular systolic function is normal and with normal TAPSE 2.4 cm. Right ventricular chamber dimension is normal. Left Atria Left atrial chamber dimension is mildly enlarged. Right Atria Right atrial chamber dimension is normal. Aortic Valve The aortic valve is trileaflet. There is no aortic valve stenosis. There is trace aortic valve regurgitation. Pulmonic Valve There is no pulmonic regurgitation. Mitral Valve There is no mitral valve stenosis. There is trace mitral valve regurgitation. Tricuspid Valve There is trace tricuspid valve regurgitation. No pulmonary hypertension, estimated pulmonary arterial systolic pressure is 26 mmHg. Pericardium/Pleural There is no pericardial effusion. Inferior Vena Cava Normal inferior vena cava with >50% collapse upon inspiration consistent with normal right atrial pressure, 5 mmHg. Aorta The aortic root size at the sinus of Valsalva is normal. Left Ventricular Outflow Tract Name Value Normal LVOT 2D LVOT Diameter 2.0 cm LVOT Doppler LVOT Peak Gradient 6 mmHg LVOT Mean Gradient 3 mmHg LVOT VTI 27 cm LVOT VTI/AV VTI Ratio 0.8 LVOT Stroke Volume 84 ml LVOT CO 5.3 l/min LVOT CI 2.3 l/min/m2 Mitral Valve Name Value Normal MV Doppler MV Decel Crockett 339 cm/s2 MV PHT 58 ms MV Area (PHT) 3.8 cm2 4.0-5.0 MV Diastolic Function MV E Peak Velocity 68 cm/s MV A Peak Velocity 79 cm/s MV E/A 0.9 MV Decel Time 200 ms MV Annular TDI MV E/e' (Septal) 7.7 <=8.0 MV E/e' (Lateral) 6.5 <=8.0 MV E/e' (Average) 7.1 Tricuspid Valve Name Value Normal TV Regurgitation Doppler TR Peak Velocity 226 cm/s TR Peak Gradient 21 mmHg Estimated PAP/RSVP RA Pressure 5 mmHg <=5 PA Systolic Pressure 26 mmHg <36 RV Systolic Pressure 26 mmHg <36 Aortic Valve Name Value Normal AV Doppler AV Peak Velocity 158 cm/s AV Peak Gradient 10 mmHg AV Mean Gradient 6 mmHg AV VTI 32 cm AV Area (Cont Eq VTI) 2.7 cm2 >=3.0 AV Area (Cont Eq Kashif) 2.5 cm2 AV Regurgitation 2D LVOT Area 3.1 cm2 Ventricles Name Value Normal LV Dimensions 2D/MM IVS Diastolic Thickness (2D) 0.9 cm 0.6-1.0 LVID Diastole (2D) 4.8 cm 4.2-5.8 LVIW Diastolic Thickness (2D) 1.0 cm 0.6-1.0 LVID Systole (2D) 3.1 cm 2.5-4.0 LVOT Diameter 2.0 cm LV Mass (2D Cubed) 156.03 g 88.00-224.00 LV Mass Index (2D Cubed) 67 g/m2 49-115 Relative Wall Thickness (2D) 0.41 LV Fractional Shortening/Ejection Fraction 2D/MM LV Fractional Shortening (2D) 37 % 25-43 LV EF (2D Teicholz) 66 % 52-72 LV Diastolic Volume (4C MOD) 114 ml LV EF (4C MOD) 69 % LV Diastolic Volume (2C MOD) 117 ml LV EF (2C MOD) 68 % LV Diastolic Volume (BP MOD) 115 ml 62-150 LV Diastolic Volume Index (BP MOD) 50 ml/m2 34-74 LV Systolic Volume (BP MOD) 37 ml 21-61 LV Systolic Volume Index (BP MOD) 16 ml/m2 11-31 LV EF (BP MOD) 68 % 52-72 LV Diastolic Length (4C) 8.4 cm LV Systolic Length (4C) 6.5 cm LV Stroke Volume (4C MOD) 78 ml Atria Name Value Normal LA Dimensions LA Volume (4C A-L) 27 ml LA Volume (BP A-L) 33 ml RA Dimensions RA Area (4C) 11.4 cm2 <=18.0 Report Signatures
--- NOTE | 2023-12-18 16:14 | WPDHOLTEREM ---
Holter/Event Monitor Holter/Event Monitor Date of procedure: 12/17/23 Holter/Event Procedure: 24 Hr Holter Monitor Indications: PAF Conclusion: 1. 24 hour holter monitor on 12/17/23. 2. Predominant rhythm is sinus rhythm. HR range 52-132 bpm; average HR 77 bpm. 3. There are 143 premature supraventricular complexes and 5 supraventricular couplets. There are 7 episodes of atrial tachycardia, fastest at 133 bpm and longest lasting 10 beats. 4. There are 436 premature ventricular complexes. No ventricular tachycardia. 5. No sinoatrial or atrioventricular blocks. No significant pauses greater than 2 seconds. 6. Patient reports 1 episode of symptom of chest pain which demonstrates sinus rhythm at 82 bpm.
== END 2023-12-17 12:37 | disposition home or self-care (01) ==
LOC: ANHCARD 12:39
PROVIDERS: PCP Family Medicine; Visit Provider Nurse Practitioner Adult Health
DX: I48.91 Unspecified atrial fibrillation (principal)
CPT/HCPCS: 93225; 93226; 93306

== ENCOUNTER 2024-03-10 11:34 | Outpatient (CLI) | payer MEDICARE, OTHER, SELFPAY ==
[2024-03-10 11:45] LABS: Basophils Percent Auto 0.5 % (0.2-1.2); Eosinophils Absolute Auto 0.2 K/mm3 (0-0.3); Eosinophils Percent Auto 3.8 % (0-4.4); Hematocrit 41.3 % (42.0-52.0); Hemoglobin 13.9 g/dL (14.0-18.0); Immature Granulocyte Absolute 0.01 K/mm3 (0.00-0.031); Immature Granulocyte Percent A 0.2 % (0-0.5); Lymphocytes Percent Auto 34.7 % (18.3-44.2); Mean Corpuscular HGB Conc 33.7 g/dl (32-36); Mean Corpuscular Volume 94.9 fl (80-100); Mean Platelet Volume 9.8 fl (7.4-10.4); Monocytes Absolute Auto 0.8 K/mm3 (0.1-0.6); Monocytes Percent Auto 14.6 % (2.6-8.5); Neutrophils Absolute Auto 2.5 K/mm3 (1.3-6.7); Neutrophils Percent Auto 46.2 % (45.5-73.1); Platelet Count Result 144 k/mm3 (150-375); Red Blood Count 4.35 M/mm3 (4.6-6.20); Red Cell Distribution Width 12.2 % (11.5-14.5); White Blood Count 5.5 K/mm3 (4.5-10.0)
[2024-03-10 12:50] LABS: Alanine Aminotransferase 18 U/L (6-50); Albumin Level 4.3 g/dL (3.5-5.1); Alkaline Phosphatase 51 U/L (38-126); Anion Gap 5 mmol/L (4-12); Aspartate Amino Transferase 29 U/L (17-59); Bilirubin,Total 0.6 mg/dL (0.2-1.3); Blood Urea Nitrogen 27 mg/dL (9-20); Calcium 9.5 mg/dL (8.4-10.2); Carbon Dioxide 29 mmol/L (22-30); Chloride 104 mmol/L (98-107); Estimated Glomerular Filt Rate > 60; Glucose 110 mg/dL (65-110); Potassium 4.7 mmol/L (3.4-5.0); Sodium 138 mmol/L (137-145)
[2024-03-10 14:10] LABS: Folic Acid > 20.0 ng/mL (2.76->20)
== END 2024-03-10 11:35 | disposition home or self-care (01) ==
LOC: ANHLAB 11:35
PROVIDERS: PCP Family Medicine; Visit Provider Internal Medicine Hematology & Oncology
DX: D64.9 Anemia, unspecified (principal)
CPT/HCPCS: 36415; 80053; 82607; 82746; 85025

== ENCOUNTER 2024-09-09 14:38 | Outpatient (CLI) | payer MEDICARE, SELFPAY ==
--- NOTE | ~2024-09-09 | XR_ITS ---
XR abdomen/kub 1V 09/09/2024 15:02 INDICATION: Flank pain TECHNIQUE: KUB COMPARISON: CT dated 09/09/2024 FINDINGS: Bowel gas pattern is normal. There is no evidence of free air, mass, organomegaly, ascites or obstruction. No abnormal calculi are seen. The bones appear intact. There are cholecystectomy c lips. There is osteoarthritis of the hips. IMPRESSION: 1: No acute abdominal abnormality identified. Reviewed, dictated and finalized at location B.
--- NOTE | ~2024-09-09 | CT_ITS ---
Non-contrast CT scan of the Abdomen and Pelvis Clinical indication: Pain Technique: 2.5 mm axial scans were obtained through the abdomen and pelvis without intravenous or or al contrast. Dose reduction technique was used on this scan by utilizing automated exposure control a nd iterative reconstruction technique. The dose-length product (DLP) was 1038.33 mGy-cm. Findings: Images through the lung bases reveal no abnormalities. 4 mm nonobstructing right renal stone present. No left renal stone. No ureteral stone or hydronephros is on either side. The liver, spleen, pancreas, and adrenals appear normal. Cholecystectomy clips are present. There is no aortic aneurysm. There is no evidence of bowel obstruction. Images through the pelvis were performed. There is no evidence of ascites or lymphadenopathy. Urinary bladder unremarkable. No pelvic mass seen. Small bilateral fat-containing hernias are present, right larger than left. Impression: 4 mm nonobstructing right renal stone. Bilateral fat-containing inguinal hernias, right larger than left. Reviewed, dictated and finalized at [facility]. Impression: 4 mm nonobstructing right renal stone. Bilateral fat-containing inguinal hernias, right larger than left.
== END 2024-09-09 14:39 | disposition home or self-care (01) ==
LOC: GOSHIMG 14:38
PROVIDERS: PCP Nurse Practitioner Adult Health; Visit Provider Nurse Practitioner Adult Health
DX: N20.0 Calculus of kidney (principal); K40.20 Bilateral inguinal hernia, without obstruction or gangrene, not specified as recurrent; I48.91 Unspecified atrial fibrillation; E78.2 Mixed hyperlipidemia; E11.319 Type 2 diabetes mellitus with unspecified diabetic retinopathy without macular edema; Z13.220 Encounter for screening for lipoid disorders; Z12.5 Encounter for screening for malignant neoplasm of prostate; I10 Essential (primary) hypertension; E53.8 Deficiency of other specified B group vitamins
CPT/HCPCS: 74018; 74176